=== PATIENT | female | born 1940 | race Two or more races ===

== ENCOUNTER → 2025-07-02 | Outpatient (CLI) | payer BC, SELFPAY ==
--- NOTE | 2025-07-02 09:40 | XR_ITS ---
Examination: AP pelvis single view TECHNIQUE: AP portable supine pelvis single view Date and time: July 02, 2025 1038 hours INDICATIONS: Low back pain beginning 10 years ago. FINDINGS: Bilateral hemiarthroplasties Satisfactory alignment. No loosening of the prosthetic components. Prominent osteopenia. Bones of the pelvis intact IMPRESSION: Bilateral hemiarthroplasties with satisfactory alignment
--- NOTE | 2025-07-02 09:40 | XR_ITS ---
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
== END | disposition home or self-care (01) ==
LOC: CDIM 09:28
PROVIDERS: PCP Nurse Practitioner Family; Referring Provider Nurse Practitioner Family; Visit Provider Nurse Practitioner Family
DX: M51.360 Other intervertebral disc degeneration, lumbar region with discogenic back pain only (principal); M48.061 Spinal stenosis, lumbar region without neurogenic claudication; R10.2 Pelvic and perineal pain
CPT/HCPCS: 72110; 72170